=== PATIENT | male | born 1980 | race Caucasian/White ===

== ENCOUNTER 2017-02-18 18:37 | Emergency (ER) | payer MEDICAID, OTHER ==
[~2017-02-18] VITALS: Ht 185.4 cm; Wt 95.3 kg
[~2017-02-18 18:37] MED LIST: ALBU8.5H4 IH; AMOX500C2 PO; CIPR500T78 PO; CLIN300C3 PO; CODE118S2 PO; HYDR1TAB PO; ONDA-43 PO; ONDAN4ODT PO; PNT40TEC PO; PRD20T PO; RANI150T66 PO; SCR1T1 PO; SULF1TAB38 PO
[2017-02-18] MEDS ORDERED: fentaNYL INJECTION 100 MCG/2 ML AMP IVP STA (19:34)
--- NOTE | 2017-02-18 19:34 | ED Back Pain ---
General Chief Complaint: Back Problems Stated Complaint: BACK PAIN Nursing Triage Note: PT CO OF LOW BACK PAIN STARTED LAST PM WHILE JUMPING ON TRAMPOLINE, PT CO OF LOW BACK PAIN Nursing Sepsis Screen: No Definite Risk Source of Information: Patient, Family () Exam Limitations: No Limitations History of Present Illness Time Seen by Provider: 19:28 Initial Comments Patient presents with acute back pain in his left lower back that started after jumping on the trampoline yesterday. 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 His pain does not radiate beyond his low back. It feels sharp and electrical and hot. It does not throb. He has no numbness, paralysis or weakness. He says is worse with lifting his left leg up. His right leg is fine. He has taken ibuprofen 800 mg 2 times with little relief. He has had a history of low back pain after lifting heavy things in the past that resolved spontaneously after ibuprofen. Allergies and Home Medications Allergies Coded Allergies: No Known Drug Allergies (Unverified , 01/29/13) Home Medications Cyclobenzaprine HCl 10 Mg Tablet, 10 MG PO BID PRN for SPASMS, #15 Ref 0 Prescribed by: NIA VILLALOBOS on 02/18/172010 Hydrocodone/Acetaminophen 1 Each Tablet, 1 EACH PO Q6H PRN for BREAKTHROUGH PAIN , #14 Ref 0 Prescribed by: NIA VILLALOBOS on 02/18/172010 Prednisone 20 Mg Tab, 40 MG PO DAILY for 5 Days, #5 Ref 0 Prescribed by: NIA VILLALOBOS on 02/18/172010 Constitutional: No chills, No fever Respiratory: No cough, No short of breath Gastrointestinal: No abdominal pain, No constipation, No diarrhea, No nausea Genitourinary: No dysuria, No frequency, No incontinence Musculoskeletal: see HPI, back pain, No joint pain, muscle pain, muscle stiffness Skin: No pruritus, No rash Past Fnnsqqf-Ebmyao-Pshioi Hx Patient Social History Alcohol Use: Denies Use Recreational Drug Use: No Smoking Status: Never a Smoker Recent Foreign Travel: No Contact w/Someone Who Travel: No Recent Infectious Disease Expo: No Recent Hopitalizations: No Immunizations Up To Date Tetanus Booster (TDap): More than 5yrs Surgeries HX Surgeries: No Respiratory Hx Respiratory Disorders: No Cardiovascular Hx Cardiac Disorders: No Neurological Hx Neurological Disorders: No Reproductive System Hx Reproductive Disorders: No Sexually Transmitted Disease: No HIV/AIDS: No Genitourinary Hx Genitourinary Disorders: No Gastrointestinal Hx Gastrointestinal Disorders: Yes (HERNIA) Gastrointestinal Disorders: Gastroesophageal Reflux Musculoskeletal Hx Musculoskeletal Disorders: No Endocrine Hx Endocrine Disorders: No HEENT HX ENT Disorders: No Cancer Hx Cancer: No Psychosocial Hx Psychiatric Problems: No Integumentary HX Skin/Integumentary Disorder: No Blood Transfusions Hx Blood Disorders: No Family Medical History Significant Family History: No Pertinent Family Hx Physical Exam Vital Signs Vital Sign - Last 12Hours 02/18/17 02/18/17 19:00 23:00 Temp 98.4 Pulse 83 Resp 20 B/P (MAP) 149/103 Pulse Ox 99 Capillary Refill : Less Than 3 Seconds General Appearance: WD/WN, Mild Distress Neck: Full Range of Motion, Normal Inspection, Non Tender, Supple Cardiovascular: Regular Rate, Rhythm, No Edema Respiratory: Chest Non Tender, Lungs Clear Peripheral Pulses: 4+ Dorsalis Pedis (R), 4+ Left Dors-Pedis (L), 4+ Radial Pulses (R), 4+ Radial Pulses (L) Gastrointestinal: Normal Bowel Sounds, Non Tender Back: Normal Inspection, No CVA Tenderness, Vertebral Tenderness (L2 region and bilateral lumbar mm) Extremity: Normal Inspection Neurologic/Psychiatric: Alert, Oriented x3, No Motor/Sensory Deficits, Other ( Motor and Sensation intact, DTR Patellar present dipak symmetrical. Straight leg raise left leg pos.) Skin: Normal Color, Warm/Dry Progress/Results/Core Measures Results/Orders My Orders Orders - NIA VILLALOBOS Lumbar Spine - 2-3 Views (02/18/17 19:34) Fentanyl Injection (Sublimaze Injection (02/18/17 19:34) Ondansetron Injection (Zofran Injectio (02/18/17 19:45) Fentanyl Injection (Sublimaze Injection (02/18/17 21:30) Ketorolac Injection (Toradol Injection) (02/18/17 21:30) Ketorolac Injection (Toradol Injection) (02/18/17 21:45) Ketorolac Injection (Toradol Injection) (02/18/17 21:31) Orphenadrine Injection (Norflex Injectio (02/18/17 22:15) Hydrocodone/[place]ap 10/325 Tablet (Lortab 1 (02/18/17 22:15) Promethazine Tablet (Phenergan Tablet) (02/18/17 22:15) Prednisone Tablet (Deltasone Tablet) (02/18/17 22:15) Medications Given in ED Current Medications Medications Dose Ordered Sig/Annamarie Route Start Time Stop Time Status Last Admin Dose Admin Acetaminophen/ Hydrocodone Bitart 1 ea ONCE ONCE PO 02/18/17 22:15 02/18/17 22:16 DC 02/18/17 22:24 1 EA Fentanyl Citrate 75 mcg ONCE ONCE IVP 02/18/17 21:30 02/18/17 21:31 DC 02/18/17 21:40 75 MCG Ketorolac Tromethamine 15 mg ONCE ONCE IVP 02/18/17 21:45 02/18/17 21:46 DC 02/18/17 21:41 15 MG Ondansetron HCl 4 mg ONCE ONCE IVP 02/18/17 19:45 02/18/17 19:46 DC 02/18/17 19:59 4 MG Orphenadrine Citrate 60 mg ONCE ONCE IV 02/18/17 22:15 02/18/17 22:16 DC 02/18/17 22:24 60 MG Prednisone 60 mg ONCE ONCE PO 02/18/17 22:15 02/18/17 22:16 DC 02/18/17 22:24 60 MG Promethazine HCl 25 mg ONCE ONCE PO 02/18/17 22:15 02/18/17 22:16 DC 02/18/17 22:24 25 MG Vital Signs/I&O Vital Sign - Last 12Hours 02/18/17 02/18/17 19:00 23:00 Temp 98.4 Pulse 83 78 Resp 20 20 B/P (MAP) 149/103 Pulse Ox 99 Blood Pressure Mean: 118 Progress Note : Progress Note gave some muscle relaxant, steroid, NSAIDs and opiates to get his pain under control so he could walk out of here and go home with conservative care. X-ray lumbar spine unrevealing for fracture. Diagnostic Imaging Diagonstic Imaging: Xray Plain Films/CT/US/NM/MRI: other (L-Spine) Comments No acute osseous abnormality. NAME: KAYLA ARMSTRONG [facility] REC#: [id number] PHYSICIAN: NIA VILLALOBOS MD CC: MICHOACANO MEJIA MD; NIA VILLALOBOS Page 1 of 1 RADIOLOGY REPORT [place]IA [place], [place] CC: MICHOACANO MEJIA MD; NIA VILLALOBOS Page 1 of 1 RADIOLOGY REPORT NAME: KAYLA ARMSTRONG [facility] REC#: [id number] PT STATUS: REG ER : 1980 PHYSICIAN: NIA VILLALOBOS MD ADMIT DATE: 02/18/17/ER Signed Date of Exam: 02/18/17 LUMBAR SPINE - 2-3 VIEWS INDICATION: Back pain after jumping on trampoline 3 views of the lumbar spine were obtained. There is normal height and alignment of the vertebral bodies. Disc spaces are well-maintained. There is no spondylosis. There is no fracture. IMPRESSION: Normal lumbar spine. Dictated by: Dictated on workstation # [id number] Dict: 02/18/172015 Trans: 02/18/172022 Interpreted by: MICHOACANO EMJIA MD Electronically signed by: MICHOACANO MEJIA MD 02/18/172022 Reviewed: Reviewed by Me Departure Impression Impression: Primary Impression: Back pain Qualified Codes: M54.42 - Lumbago with sciatica, left side Additional Impression: Sciatic leg pain Disposition: 01 HOME, SELF-CARE Condition: Stable Departure-Patient Inst. Decision time for Depature: 21:19 Referrals: [facility] (PCP/Family) Primary Care Physician Add. Discharge Instructions: Your back pain will resolve with time. I recommend using heating pads, ice, rest , Tylenol and Motrin. You may also use vapor rubs. If this does not help and you 're still having breakthrough pain you can use the hydrocodone. If use hydrocodone no that this will make him more drowsy and can cause constipation and should probably be taken with a dose of MiraLAX every day that she use hydrocodone. He will not be allowed to drive while under the influence of cyclobenzaprine or hydrocodone. He should attempt to return to work by Thursday on light duty lifting no more than 15 pounds. He may stay on light duty for one week or sooner if your primary care release is you. If your pain persists past the weekend and you should see her primary care physician or return to the ER if you have new or concerning symptoms such as numbness, weakness, paralysis or loss of control of urine or bowel. All discharge instructions reviewed with patient and/or family. Voiced understanding. Scripts Hydrocodone/Acetaminophen ([place] 5-325 Tablet) 1 Each Tablet 1 EACH PO Q6H Y for BREAKTHROUGH PAIN, #14 TAB 0 Refills Prov: NIA VILLALOBOS 02/18/17 Cyclobenzaprine HCl (Cyclobenzaprine HCl) 10 Mg Tablet 10 MG PO BID Y for SPASMS, #15 TAB 0 Refills Prov: NIA VILLALOBOS 02/18/17 Prednisone (Prednisone) 20 Mg Tab 40 MG PO DAILY for 5 Days, #5 TAB 0 Refills Prov: NIA VILLALOBOS 02/18/17 Work/School Note: Work Release Form Date Seen in the Emergency Department: Feb 18, 2017 Return to Work: Feb 20, 2017 Other Restrictions Listed Below: Restrictions for lifting above 15 pounds for one week or if released sooner Copy Copies To 1: ROSSANA GOLD TITUS J Feb 18, 2017 19:34
[2017-02-18] MEDS ORDERED: ONDANSETRON 4 MG/2 ML (SDV) Z0FRAN IVP ONE (19:45)
[2017-02-18] MEDS ORDERED: PRD20T PO (20:11)
[2017-02-18] MEDS ORDERED: HYDR-757 PO (20:11)
[2017-02-18] MEDS ORDERED: CYCL10TA9 PO (20:11)
--- NOTE | 2017-02-18 20:22 | Diagnostic Imaging Report ---
INDICATION: Back pain after jumping on trampoline 3 views of the lumbar spine were obtained. There is normal height and alignment of the vertebral bodies. Disc spaces are well-maintained. There is no spondylosis. There is no fracture. IMPRESSION: Normal lumbar spine. Dictated by: Dictated on workstation # [id number]
[2017-02-18] MEDS ORDERED: fentaNYL INJECTION 100 MCG/2 ML AMP IVP ONE (21:30)
[2017-02-18] MEDS ORDERED: KETOROLAC 15 MG/ML VIAL IVP ONE (21:30)
[2017-02-18] MEDS ORDERED: KETOROLAC 30 MG/ML VIAL ONE (21:31)
[2017-02-18] MEDS ORDERED: KETOROLAC 30 MG/ML VIAL IVP ONE (21:45)
[2017-02-18] MEDS ORDERED: predniSONE 20 MG TAB PO ONE (22:15)
[2017-02-18] MEDS ORDERED: HYDROcodone/APAP 10 MG/325 MG (LORTAB) TAB PO ONE (22:15)
[2017-02-18] MEDS ORDERED: PROMETHAZINE 25 MG (PHENERGAN) TAB PO ONE (22:15)
[2017-02-18] MEDS ORDERED: ORPHENADRINE 60 MG/2 ML (NORFLEX) AMP IV ONE (22:15)
[2017-02-18 23:00] VITALS: BP 136/78
== END 2017-02-18 23:00 | disposition home or self-care (01) ==
LOC: EDUNIT# 18:37 → ER 18:40
DX: M54.42 Lumbago with sciatica, left side (principal)
CPT/HCPCS: 72100; 96374; 96375; 96376; 99281

== ENCOUNTER 2018-11-08 11:27 | Outpatient (RCR) | payer MEDICAID ==
[~2018-11-08 11:27] MED LIST changes: +CYCL10TA9 PO; +HYDR-4226 PO
== END 2018-12-06 10:29 | disposition home or self-care (01) ==
PROVIDERS: ATTEND Nurse Practitioner Community Health
DX: M54.41 Lumbago with sciatica, right side (principal)

== ENCOUNTER 2021-06-21 15:41 | Emergency (ER) | payer SELFPAY ==
[~2021-06-21] VITALS: Ht 185.4 cm; Wt 80.0 kg
[2021-06-21] MEDS ORDERED: fentaNYL INJ 100 MCG/2 ML AMP ONE (16:05)
[2021-06-21] MEDS ORDERED: LACTATED RINGERS 1,000 ML IV ONE (16:06)
[2021-06-21] MEDS ORDERED: KETOROLAC 30 MG/ML VIAL ONE (16:06)
[2021-06-21 16:15] LABS: BILIRUBIN,URINE 1+ (NEGATIVE); CLARITY,URINE CLOUDY; COLOR,URINE YELLOW; GLUCOSE, URINE (UA) NEGATIVE (NEGATIVE); KETONES,URINE 1+ (NEGATIVE); LEUKOCYTE ESTERASE ,URINE NEGATIVE (NEGATIVE); NITRITE,URINE NEGATIVE (NEGATIVE); PH,URINE 5.5 (5-9); PROTEIN,URINE 1+ (NEGATIVE)
[2021-06-21] MEDS ORDERED: fentaNYL INJ 100 MCG/2 ML AMP IVP ONE (16:15)
[2021-06-21] MEDS ORDERED: LACTATED RINGERS 1,000 ML IV SCH (16:15)
[2021-06-21] MEDS ORDERED: ONDANSETRON 4 MG/2 ML (SDV) Z0FRAN IVP ONE (16:15)
[2021-06-21] MEDS ORDERED: ACHD5005 PO (16:15)
[2021-06-21] MEDS ORDERED: HYDROcodone/APAP 5 MG/325 MG (LORTAB) TAB PO ONE (16:15)
[2021-06-21] MEDS ORDERED: ONDA8TAB13 PO (16:15)
[2021-06-21] MEDS ORDERED: CEFU250T80 PO (16:15)
[2021-06-21] MEDS ORDERED: KETOROLAC 30 MG/ML VIAL IVP ONE (16:15)
[2021-06-21] MEDS ORDERED: TMSL.4C PO (16:15)
--- NOTE | 2021-06-21 16:16 | ED GU-Male ---
General Stated Complaint: L FLANK PAIN Source: patient Exam Limitations: no limitations (MARIA LUISA VILLARREAL APRN) History of Present Illness Date Seen by Provider: Jun 21, 2021 Time Seen by Provider: 16:12 Initial Comments To ER with severe sudden onset left flank pain that radiates to both testicles that began at about 1 hour ago suddenly while at work. No history of this. Timing/Duration: constant Severity/Quality: cramping Location: left flank Radiation: none Activities at Onset: none Prior Genitourinary Problems: none Associated Symptoms: abdominal pain, dysuria, nausea/vomiting (MARIA LUISA VILLARREAL APRN) Allergies and Home Medications Allergies Coded Allergies: No Known Drug Allergies (Unverified , 01/29/13) Home Medications Cefuroxime Axetil 250 Mg Tablet, 250 MG PO BID Prescribed by: MARIA LUISA VILLARREAL on 06/21/211614 Cyclobenzaprine HCl 10 Mg Tablet, 10 MG PO BID PRN for SPASMS Prescribed by: NIA VILLALOBOS on 02/18/172010 Hydrocodone/Acetaminophen 1 Each Tablet, 1 EACH PO Q6H PRN for BREAKTHROUGH PAIN Prescribed by: NIA VILLALOBOS on 02/18/172010 Hydrocodone/Acetaminophen 1 Each Tablet, 1-2 TAB PO Q4H PRN for PAIN-MODERATE (5-7) Prescribed by: MARIA LUISA VILLARREAL on 06/21/211614 Ondansetron 8 Mg Tab.rapdis, 8 MG PO Q6H PRN for NAUSEA/VOMITING Prescribed by: MARIA LUISA VILLARREAL on 06/21/211614 Prednisone 20 Mg Tab, 40 MG PO DAILY Prescribed by: NIA VILLALOBOS on 02/18/172010 Tamsulosin HCl 0.4 Mg Cap, 0.4 MG PO DAILY Prescribed by: MARIA LUISA VILLARREAL on 06/21/211614 Patient Home Medication List Home Medication List Reviewed: Yes (MARIA LUISA VILLARREAL APRN) Review of Systems Review of Systems Constitutional: see HPI EENTM: see HPI Respiratory: no symptoms reported Cardiovascular: no symptoms reported Genitourinary: see HPI, flank pain Musculoskeletal: no symptoms reported Skin: no symptoms reported Psychiatric/Neurological: No Symptoms Reported Endocrine: No Symptoms Reported Hematologic/Lymphatic: No Symptoms Reported (MARIA LUISA VILLARREAL APRN) Past Vsycsih-Fgwobq-Xmbelr Hx Immunizations Up To Date Tetanus Booster (TDap): More than 5yrs (MARIA LUISA VILLARREAL APRN) Past Medical History Reproductive Disorders: No Sexually Transmitted Disease: No HIV/AIDS: No Gastroesophageal Reflux (MARIA LUISA VILLARREAL APRN) Family Medical History No Pertinent Family Hx (MARIA LUISA VILLARREAL APRN) Physical Exam Vital Signs Vital Signs - First Documented 06/21/21 16:00 Temp 36.7 Pulse 69 Resp 24 B/P (MAP) 163/110 (127) Pulse Ox 100 O2 Delivery Room Air (KAREN CHIN MD) Vital Signs Capillary Refill : (MARIA LUISA VILLARREAL APRN) Height, Weight, BMI Height: 6'1.00" Weight: 210lbs. oz. 95.139626kl; BMI Method:Stated General Appearance: moderate distress (writhing in pain) HEENT: PERRL/EOMI, normal ENT inspection Neck: non-tender, full range of motion Respiratory: no respiratory distress, no accessory muscle use Gastrointestinal: normal bowel sounds, non tender, soft Back: CVA tenderness (L) Neurologic/Psychiatric: alert, normal mood/affect, oriented x 3 Skin: normal color, warm/dry (MARIA LUISA VILLARREAL APRN) Progress/Results/Core Measures Suspected Sepsis SIRS Temperature: Pulse: Respiratory Rate: Laboratory Tests 06/21/21 16:04: White Blood Count 8.1 Blood Pressure / Mean: Laboratory Tests 06/21/21 16:04: Creatinine 1.48H, Platelet Count 233 (MARIA LUISA VILLARREAL APRN) Results/Orders Lab Results Laboratory Tests Test 06/21/21 15:50 06/21/21 16:04 Range/Units Urine Color YELLOW Urine Clarity CLOUDY Urine pH 5.5 5-9 Urine Specific [place] >=1.030 1.016-1.022 Urine Protein 1+ H NEGATIVE Urine Glucose (UA) NEGATIVE NEGATIVE Urine Ketones 1+ H NEGATIVE Urine Nitrite NEGATIVE NEGATIVE Urine Bilirubin 1+ H NEGATIVE Urine Urobilinogen 0.2 < = 1.0 MG/DL Urine Leukocyte Esterase NEGATIVE NEGATIVE Urine RBC (Auto) 3+ H NEGATIVE Urine RBC 2-5 H /HPF Urine WBC 10-25 H /HPF Urine Squamous Epithelial Cells NONE /HPF Urine Renal Epithelial Cells NONE /HPF Urine Crystals NONE /LPF Urine Bacteria TRACE /HPF Urine Casts NONE /LPF Urine Mucus MODERATE H /LPF Urine Culture Indicated NO White Blood Count 8.1 4.3-11.0 10^3/uL Red Blood Count 4.69 4.30-5.52 10^6/uL Hemoglobin 14.5 13.3-17.7 g/dL Hematocrit 43 40-54 % Mean Corpuscular Volume 92 80-99 fL Mean Corpuscular Hemoglobin 31 25-34 pg Mean Corpuscular Hemoglobin Concent 34 32-36 g/dL Red Cell Distribution Width 12.4 10.0-14.5 % Platelet Count 233 130-400 10^3/uL Mean Platelet Volume 9.6 9.0-12.2 fL Immature Granulocyte % (Auto) 0 % Neutrophils (%) (Auto) 58 42-75 % Lymphocytes (%) (Auto) 29 12-44 % Monocytes (%) (Auto) 10 0-12 % Eosinophils (%) (Auto) 2 0-10 % Basophils (%) (Auto) 1 0-10 % Neutrophils # (Auto) 4.6 1.8-7.8 10^3/uL Lymphocytes # (Auto) 2.4 1.0-4.0 10^3/uL Monocytes # (Auto) 0.8 0.0-1.0 10^3/uL Eosinophils # (Auto) 0.1 0.0-0.3 10^3/uL Basophils # (Auto) 0.1 0.0-0.1 10^3/uL Immature Granulocyte # (Auto) 0.0 0.0-0.1 10^3/uL Sodium Level 141 135-145 MMOL/L Potassium Level 3.8 3.6-5.0 MMOL/L Chloride Level 105 98-107 MMOL/L Carbon Dioxide Level 21 21-32 MMOL/L Anion Gap 15 H 5-14 MMOL/L Blood Urea Nitrogen 16 7-18 MG/DL Creatinine 1.48 H 0.60-1.30 MG/DL Estimat Glomerular Filtration Rate 53 BUN/Creatinine Ratio 11 Glucose Level 121 H 70-105 MG/DL Calcium Level 10.0 8.5-10.1 MG/DL (KAREN CHIN MD) My Orders Orders - KAREN CHIN MD Fentanyl Inj (Sublimaze Injection) (06/21/21 16:05) Ketorolac Injection (Toradol Injection) (06/21/21 16:06) Lactated Ringers (Lr 1000 Ml Iv Solution (06/21/21 16:06) (KAREN CHIN MD) Vital Signs/I&O 06/21/21 06/21/21 16:00 17:30 Temp 36.7 Pulse 69 81 Resp 24 20 B/P (MAP) 163/110 (127) 141/68 Pulse Ox 100 99 O2 Delivery Room Air Room Air (KAREN CHIN MD) Vital Signs/I&O Capillary Refill : (MARIA LUISA VILLARREAL APRN) Diagnostic Imaging Diagonstic Imaging: CT Comments NAME: KAYLA ARMSTRONG [facility] REC#: [id number] PT STATUS: REG ER : 1980 PHYSICIAN: MARIA LUISA VILLARREAL APRN ADMIT DATE: 06/21/21/ER Draft Date of Exam:06/21/21 CT ABD/PELVIS WO(KIDNEY STONE) CLINICAL INDICATION: Patient complains of left flank pain. Patient states he was standing at work when it started. Patient denies trauma or injury. EXAM: CT exam of the abdomen and pelvis is performed without IV or oral contrast using stone protocol. Coronal and sagittal reformatted images were created. Auto Exposure Controls were utilized during the CT exam to meet ALARA standards for radiation dose reduction. COMPARISONS: CT scan of the abdomen and pelvis with contrast dated 08/23/2013. FINDINGS: Visualized lung bases: Stable micronodules involving both lung bases. Liver: Unremarkable as visualized. Gallbladder: Unremarkable. Pancreas: Unremarkable as visualized. Spleen: Unremarkable as visualized. Adrenal glands: Unremarkable. Kidneys/ ureters: There is a 3 mm stone within the distal left ureter in the region of the left UVJ. There is no hydronephrosis or perinephric fat stranding. There is a roughly 1-2 mm punctate nonobstructive calcification involving the midportion of the right kidney. There are no other urinary tract stones seen. There are no stones in the ureter. Aorta: Unremarkable as visualized. Intraabdominal/ retroperitoneal contents: Unremarkable. Intestines: Unremarkable as visualized. Appendix: Unremarkable. Bladder: There is small amount of fluid in the bladder. There is diffuse bladder wall thickening which may be related to incomplete distention. Pelvic organs: Unremarkable as visualized. Extra abdominal/ pelvis regions: Unremarkable. Abdominal wall: Unremarkable. Bones: There are degenerative spurs involving the lower lumbar spine and lower lumbar spine facet arthropathy. IMPRESSION: 1: There is a 3 mm stone within the distal left ureter in the region of the left UVJ. There is no significant hydronephrosis or fat stranding. 2: There is another punctate nonobstructive stone involving the right kidney. Dictated on workstation # [id number] Dict: 06/21/21 1647 Trans: 06/21/21 1657 [facility] [id number] Interpreted by: FAISAL MALONEY MD Electronically signed by: (MARIA LUISA VILLARREAL APRN) Departure Impression Primary Impression: Left ureteral stone Disposition: HOME, SELF-CARE Condition: Stable Departure-Patient Inst. Decision time for Depature: 16:13 (MARIA LUISA VILLARREAL APRN) Referrals: [facility] (PCP/Family) Primary Care Physician BRIAN BUTLER MD Patient Instructions: Kidney Stone, Adult ED Add. Discharge Instructions: INCrease fluid intake. Take the ibuprofen every 8 hours in addition to the hydrocodone for pain control. Return to ER for fevers or intolerable pain. If you have still not passed the stone by Thursday then call Dr. Butler's office to make an appointment to be seen. Scripts Hydrocodone/Acetaminophen (Hydrocodone-Acetamin 5-325 mg) 1 Each Tablet 1-2 TAB PO Q4H PRN for PAIN-MODERATE (5-7), #20 TAB Prov: MARIA LUISA VILLARREAL APRN 06/21/21 Ondansetron (Ondansetron Odt) 8 Mg Tab.rapdis 8 MG PO Q6H PRN for NAUSEA/VOMITING, #14 TAB Prov: MARIA LUISA VILLARREAL APRN 06/21/21 Cefuroxime Axetil (Cefuroxime) 250 Mg Tablet 250 MG PO BID, #10 TAB Prov: MARIA LUISA VILLARREAL APRN 06/21/21 Tamsulosin HCl (Flomax) 0.4 Mg Cap 0.4 MG PO DAILY, #10 CAP Prov: MARIA LUISA VILLARREAL APRN 06/21/21 Work/School Note: Work Release Form Date Seen in the Emergency Department: Jun 21, 2021 Return to Work: Jun 24, 2021 ATTENDING PHYSICIAN NOTE: I was physically present as attending physician in the emergency department during the care of this patient, but I was not directly involved in the decision making or delivery of care for this patient. (KAREN CHIN MD) MARIA LUISA VILLARREAL APRN Jun 21, 2021 16:16 KAREN CHIN MD Jun 23, 2021 20:41
[2021-06-21 16:18] LABS: BASOPHILS # (AUTO) 0.1 10^3/uL (0.0-0.1); BASOPHILS % (AUTO) 1 % (0-10); EOSINOPHILS # (AUTO) 0.1 10^3/uL (0.0-0.3); EOSINOPHILS % (AUTO) 2 % (0-10); HEMATOCRIT 43 % (40-54); HEMOGLOBIN 14.5 g/dL (13.3-17.7); LYMPHOCYTES # (AUTO) 2.4 10^3/uL (1.0-4.0); LYMPHOCYTES % (AUTO) 29 % (12-44); MEAN CORPUSCULAR HEMOGLOBIN 31 pg (25-34); MEAN CORPUSCULAR HGB CONC 34 g/dL (32-36); MEAN CORPUSCULAR VOLUME 92 fL (80-99); MEAN PLATELET VOLUME 9.6 fL (9.0-12.2); MONOCYTES # (AUTO) 0.8 10^3/uL (0.0-1.0); MONOCYTES % (AUTO) 10 % (0-12); NEUTROPHILS # (AUTO) 4.6 10^3/uL (1.8-7.8); NEUTROPHILS % (AUTO) 58 % (42-75); PLATELET COUNT 233 10^3/uL (130-400); WHITE BLOOD COUNT 8.1 10^3/uL (4.3-11.0)
[2021-06-21 16:25] LABS: BACTERIA,URINE TRACE /HPF
[2021-06-21 16:26] LABS: POTASSIUM 3.8 MMOL/L (3.6-5.0)
[2021-06-21 16:31] LABS: CREATININE SERUM 1.48 MG/DL (0.60-1.30)
--- NOTE | 2021-06-21 16:53 | Diagnostic Imaging Report ---
EXAM: ABDOMEN/KUB 1VIEW INDICATION: Left flank pain. COMPARISON: CT abdomen and pelvis without contrast also performed today. FINDINGS: The punctate renal stone at the left ureterovesicular junction seen on today's CT exam is not convincingly demonstrated by radiography. Phleboliths and vas deferens calcifications in the pelvis. Nonspecific bowel gas pattern. IMPRESSION: The known punctate renal stone at the left ureterovesicular junction is better demonstrated on today's comparison CT. Dictated by: Dictated on workstation # [id number]
--- NOTE | 2021-06-21 16:57 | Diagnostic Imaging Report ---
CLINICAL INDICATION: Patient complains of left flank pain. Patient states he was standing at work when it started. Patient denies trauma or injury. EXAM: CT exam of the abdomen and pelvis is performed without IV or oral contrast using stone protocol. Coronal and sagittal reformatted images were created. Auto Exposure Controls were utilized during the CT exam to meet ALARA standards for radiation dose reduction. COMPARISONS: CT scan of the abdomen and pelvis with contrast dated 08/23/2013. FINDINGS: Visualized lung bases: Stable micronodules involving both lung bases. Liver: Unremarkable as visualized. Gallbladder: Unremarkable. Pancreas: Unremarkable as visualized. Spleen: Unremarkable as visualized. Adrenal glands: Unremarkable. Kidneys/ ureters: There is a 3 mm stone within the distal left ureter in the region of the left UVJ. There is no hydronephrosis or perinephric fat stranding. There is a roughly 1-2 mm punctate nonobstructive calcification involving the midportion of the right kidney. There are no other urinary tract stones seen. There are no stones in the ureter. Aorta: Unremarkable as visualized. Intraabdominal/ retroperitoneal contents: Unremarkable. Intestines: Unremarkable as visualized. Appendix: Unremarkable. Bladder: There is small amount of fluid in the bladder. There is diffuse bladder wall thickening which may be related to incomplete distention. Pelvic organs: Unremarkable as visualized. Extra abdominal/ pelvis regions: Unremarkable. Abdominal wall: Unremarkable. Bones: There are degenerative spurs involving the lower lumbar spine and lower lumbar spine facet arthropathy. IMPRESSION: 1: There is a 3 mm stone within the distal left ureter in the region of the left UVJ. There is no significant hydronephrosis or fat stranding. 2: There is another punctate nonobstructive stone involving the right kidney. Dictated by: Dictated on workstation # [id number]
[2021-06-21 17:30] VITALS: BP 141/68
== END 2021-06-21 17:30 | disposition home or self-care (01) ==
LOC: EDUNIT# 15:41 → ER 15:43
DX: N20.1 Calculus of ureter (principal); Z79.52 Long term (current) use of systemic steroids
CPT/HCPCS: 36415; 74018; 74176; 80048; 81000; 85025